=== PATIENT | male | born 1960 | race Caucasian/White ===

== ENCOUNTER 2018-10-18 00:40 | Emergency (ER) | payer SELFPAY ==
[~2018-10-18] VITALS: Ht 182.9 cm; Wt 90.7 kg
[2018-10-18 00:54] VITALS: BP_SYST 158
== END 2018-10-18 01:15 ==
LOC: SED 00:40
DX: Z02.89 Encounter for other administrative examinations (principal); E78.00 Pure hypercholesterolemia, unspecified; I10 Essential (primary) hypertension; Z86.19 Personal history of other infectious and parasitic diseases
CPT/HCPCS: 99283